=== PATIENT | female | born 1995 | race African-American/Black ===

== ENCOUNTER 2019-07-07 01:21 | Inpatient (IN) | payer OTHER ==
[2019-07-07] MEDS ORDERED: Sodium Citrate/Citric Acid* 15 ML UDC PO ONE (06:54)
[2019-07-07] MEDS ORDERED: Buffered Lidocaine 1% SYRIN* 1 ML/SYRINGE INTRADERM ONE (06:54)
[2019-07-07] MEDS ORDERED: Lactated Ringers 1000 ML Bag* 1,000 ML IV SCH ×2 (07:00→13:00)
[2019-07-07] MEDS ORDERED: Morphine PF AMP (0.5MG/ML)* 5 MG/10 ML AMP ONE ×2 (07:16→09:35)
[2019-07-07] MEDS ORDERED: ceFOXitin 2 GM IVPREMIX* 2 GM/50 ML BAG ONE (09:49)
[2019-07-07] MEDS ORDERED: Naloxone* 0.4 MG/ML 1 ML VIAL IV PRN ×2 (09:52→09:54)
[2019-07-07] MEDS ORDERED: DiMENhydriNATE IV* 50 MG/ML VIAL IV PUSH PRN (09:52)
[2019-07-07] MEDS ORDERED: Scopolamine 1.5 mg* PATCH TRANSDERM PRN (09:52)
[2019-07-07] MEDS ORDERED: fentaNYL* 50 MCG/ML 2 ML VIAL (100 MCG VIAL) IV PRN (09:52)
[2019-07-07] MEDS ORDERED: Ondansetron INJ* 2 MG/ML VIAL IV PRN (09:54)
[2019-07-07] MEDS ORDERED: oxyCODONE/Acetamin 5/325 MG* TAB PO PRN ×2 (09:54)
[2019-07-07] MEDS ORDERED: OXYTOCIN* 10 UNITS/ML 1 ML VIAL ONE (10:14)
[2019-07-07] MEDS ORDERED: Ondansetron INJ* 2 MG/ML VIAL ONE (10:14)
[2019-07-07] MEDS ORDERED: Phenylephrine 10 MG/ML VIAL* 1 ML VIAL ONE (10:15)
[2019-07-07] MEDS ORDERED: ceFOXitin 2 GM IVPREMIX* 2 GM/50 ML BAG IVPB ONE (10:28)
[2019-07-07] MEDS ORDERED: NS 0.9% 50 ML* 50 ML with ceFOXitin(*) 2 GM IVPB ONE ×2 (10:45)
[2019-07-07] MEDS ORDERED: Nalbuphine* 10 MG/ML 1 ML VIAL IV PRN (11:14)
[2019-07-07] MEDS ORDERED: Dibucaine 1% 28.35 GM TUBE PR PRN (12:04)
[2019-07-07] MEDS ORDERED: Glycerin ADULT SUPP PR PRN (12:04)
[2019-07-07] MEDS ORDERED: Witch Hazel PAD* JAR TOPICAL PRN (12:04)
[2019-07-07] MEDS: Ketorolac INJ* 30 MG/ML 1 ML VIAL IV PRN ×2 (12:48→21:26)
[2019-07-07] MEDS: Simethicone TAB* 80 MG TAB.CHEW PO SCH ×2 (15:35→21:26)
[2019-07-07] MEDS: Docusate CAP* 100 MG PO SCH ×2 (17:34→21:26)
--- NOTE | 2019-07-08 01:34 | OP ---
DATE OF OPERATION: 07/07/19 - ROOM #102 DATE OF : 89 SURGEON: Jeremias Angelo DO TRUCK BODY REPAIRER: Joseph Woo MD ANESTHESIA: Spinal. PRE-OP DIAGNOSES: Repeat section for term ferrer intrauterine at 39 weeks, history of a prior section. POST-OP DIAGNOSES: Repeat section for term ferrer intrauterine at 39 weeks, delivered; history of a prior section. OPERATIVE PROCEDURE: Repeat section via Pfannenstiel incision, vacuum- assisted delivery of head. ESTIMATED BLOOD LOSS: 500 mL. TOTAL IV FLUIDS FOR THE CASE: 2400 mL. URINE OUTPUT: 150 mL. SPECIMEN: Placenta was discarded. COMPLICATIONS: None. FINDINGS: A female infant in vertex position, Apgars 8 and 9, weight 7 pounds 0 ounces or 3169 g. Normal uterus, fallopian tubes, and ovaries bilaterally. The patient was consented for a repeat . The patient understood the risks of section include but are not limited to visceral or vascular injury, infection, blood loss and need for transfusion, prolonged hospitalization, reoperation. The patient stated understanding and desired to proceed. All questions were answered. DESCRIPTION OF PROCEDURE: The patient was taken to the operating room where spinal anesthesia was found to be adequate. 2 g of cefoxitin was administered for infection prophylaxis. The patient was prepped and draped in the dorsal supine fashion with a leftward tilt. Pfannenstiel skin incision was made with the scalpel and carried down to the fascia sharply. The fascia was incised and extended laterally. Inferior aspect of the fascia was grasped with Catia clamps. Underlying rectus muscle and pyramidalis were dissected off sharply with Parish scissors. In a similar fashion, the superior aspect of the fascia was elevated with Catia and the rectus muscle dissected off. Hemostasis was achieved with the Bovie. The rectus muscle was in the midline down to the level of the pubic symphysis. The preperitoneal fatty tissue was bluntly dissected to expose the peritoneum. The peritoneum was entered bluntly. The peritoneal incision was extended superiorly and inferiorly to the bladder reflection with good visualization of the bladder. Bladder blade was inserted. Vesicouterine peritoneum identified. Intraabdominal survey revealed scant clear peritoneal fluid and a thinned out lower uterine segment. The Vesicouterine peritoneum was opened with scissors and a bladder flap was developed. The bladder blade was repositioned to keep the bladder out of the operative field. The lower uterine segment was incised with a scalpel. The amniotic sac ruptured spontaneously and clear amniotic fluid was noted. The uterine incision was extended in a cephalocaudad manner bluntly. The fetus was in cephalic presentation. The head was elevated out of pelvis with special attention paid to avoid using the uterine incision as a fulcrum. Gentle fundal pressure was applied. The right rectus was partially transected to create greater space for delivery. A Kiwi vacuum was applied to the head to assist with delivery of the head through the incision. The infant was delivered with no difficulty thereafter. Mouth and nose were suctioned with a bulb. The cord was clamped and cut. The infant was handed off to the bar finish operator. IV oxytocin was initiated to facilitate uterine contractions. Placenta was delivered intact with manual massage of the uterine fundus. The uterus was exteriorized and the inside of the uterus was gently wiped with a lap sponge to assure complete removal of placental membranes. Uterine incision was closed with 0 Vicryl suture in a running locked fashion. An imbricating suture was also placed on the uterine incision with 0 Vicryl. Ovaries and fallopian tubes bilaterally were inspected and found to be normal. The uterus, fallopian tubes, and ovaries were returned to the abdominal cavity. Blood clots and fluid were wiped out of the abdomen and pelvis with moist laparotomy sponges. Uterine incision was reinspected and good hemostasis was noted. The peritoneum was closed with 3-0 Vicryl suture in a continuous running fashion. The fascia was closed with 0 Vicryl suture in a continuous running fashion. Copious irrigation was performed. Skin was closed with 4-0 Monocryl suture in a subcuticular fashion. The patient tolerated the procedure well. All the counts were correct x2. The patient was taken to the recovery room in a stable condition. Markos Angelo DO OBGYN [id number]/[facility] #: [id number] [facility]
[2019-07-08] MEDS ORDERED: oxyCODONE/Acetamin 5/325 MG* TAB PO PRN ×2 (02:00)
[2019-07-08] MEDS: Ketorolac INJ* 30 MG/ML 1 ML VIAL IV PRN (06:41)
[2019-07-08] MEDS ORDERED: Ferrous Gluconate TAB* 324 MG TAB PO SCH (09:00)
[2019-07-08 09:37] LABS: ABS Lymphocytes 1.4 10^3/ul (1.0-4.8); ABS Monocytes 0.4 10^3/ul (0-0.8); ABS Neutrophils 6.9 10^3/ul (1.5-7.7); Eosinophil % 0.3 %; Hematocrit 31 % (35-47); Hemoglobin 10.5 g/dL (12.0-16.0); Mean Corpuscular HGB Conc 33 g/dL (31-36); Mean Corpuscular Hemoglobin 26 pg (27-31); Mean Corpuscular Volume 79 fL (80-97); Mean Platelet Volume 6.8 fL (7.4-10.4); Platelet Count 359 10^3/uL (150-450); Red Blood Count 3.96 10^6 /uL (3.70-4.87); Red Cell Distribution Width 15 % (10-15); White Blood Count 8.7 10^3/uL (3.5-10.8)
[2019-07-08] MEDS: Simethicone TAB* 80 MG TAB.CHEW PO SCH ×5 (11:39→20:03)
[2019-07-08] MEDS: Docusate CAP* 100 MG PO SCH ×4 (11:39→21:00)
[2019-07-08] MEDS: Ibuprofen TAB* 600 MG PO PRN ×2 (12:56→20:03)
[2019-07-08] MEDS: Acetaminophen TAB* 325 MG PO PRN ×2 (16:26→20:02)
[2019-07-08] MEDS ORDERED: Zolpidem TAB* 5 MG PO PRN (21:00)
[2019-07-09] MEDS: Acetaminophen TAB* 325 MG PO PRN (04:17)
[2019-07-09] MEDS: Docusate CAP* 100 MG PO SCH ×3 (08:04→20:40)
[2019-07-09] MEDS: Ibuprofen TAB* 600 MG PO PRN ×2 (10:25→20:17)
[2019-07-10] MEDS: Docusate CAP* 100 MG PO SCH (08:35)
[2019-07-10 08:39] VITALS: BP 90/54
== END 2019-07-10 13:10 | disposition home or self-care (01) | DRG 540 ==
LOC: MCHOB 05:54
PROVIDERS: ADMIT Obstetrics & Gynecology; ATTEND Obstetrics & Gynecology
PROC: 4A1HXCZ Monitoring of Products of Conception, Cardiac Rate, External Approach (ICD-10-PCS; 2019-07-07)
PROC: 10D00Z1 Extraction of Products of Conception, Low, Open Approach (ICD-10-PCS; principal; 2019-07-07 10:25)
DX: O34.211 Maternal care for low transverse scar from previous cesarean delivery (principal); Z3A.39 39 weeks gestation of pregnancy; Z37.0 Single live birth; O90.89 Other complications of the puerperium, not elsewhere classified; L29.9 Pruritus, unspecified
CPT/HCPCS: 36415; 85025; A9270-GY; J0694; J1885; J2405; J2590